=== PATIENT | female | born 1950 | race Caucasian/White ===

== ENCOUNTER 2017-07-22 05:30 | Day surgery (SDC) | payer MEDICARE ==
[~2017-07-22] VITALS: Ht 166.4 cm; Wt 97.0 kg
[~2017-07-22 05:30] MED LIST: ASPI-496 PO; ATOR10TA9 PO; CHOL10003 PO; DOXY100T PO; FESO4TAB PO; LISI1TAB5 PO; METF500T4 PO; METR45GE TP; MULT-658 PO; NATE60TA2 PO; PIOG15TA4 PO; [UNRECOGNIZED DRUG - OTHER] PO; probiotic PO; vitamin b12 IM
[2017-07-22] MEDS ORDERED: LACTATED RINGERS 1,000 ML IV SCH (06:14)
[2017-07-22 06:19] VITALS: BP 122/76
[2017-07-22] MEDS ORDERED: MIDAZOLAM 1 MG/ML, 2ML ONE (06:55)
[2017-07-22] MEDS ORDERED: FENTANYL PF 100 MCG/2ML ONE ×2 (06:56)
[2017-07-22] MEDS ORDERED: EPINEPHRINE 1 MG/ML, 1ML ONE (07:12)
[2017-07-22] MEDS ORDERED: BUPIVACAINE/PF 0.25% ONE (07:12)
[2017-07-22] MEDS ORDERED: SCOPOLAMINE PATCH, 1MG PATCH.TD72 TD ONE (07:19)
[2017-07-22] MEDS ORDERED: ONDANSETRON 2MG/ML, 2ML ONE (07:48)
[2017-07-22] MEDS ORDERED: CEFAZOLIN 1,000 MG ONE (07:48)
[2017-07-22] MEDS ORDERED: DEXAMETHASONE 4 MG/ML, 1ML ONE (07:48)
[2017-07-22] MEDS ORDERED: PROPOFOL 10 MG/ML, 20ML ONE (07:48)
[2017-07-22] MEDS ORDERED: ACETAMINOPHEN 325 MG TABLET PO PRN (08:00)
[2017-07-22] MEDS ORDERED: EPHEDRINE 50 MG/ML, 1ML IVPush PRN (08:00)
[2017-07-22] MEDS ORDERED: PROMETHAZINE 25 MG/ML, 1ML IV PRN (08:00)
[2017-07-22] MEDS ORDERED: OXYcodone 5 MG/5 ML ORAL.SOL UDC PO PRN (08:00)
[2017-07-22] MEDS ORDERED: MEPERIDINE/PF 25MG/0.5ML IVPush PRN (08:00)
[2017-07-22] MEDS ORDERED: ONDANSETRON 2MG/ML, 2ML IVPush PRN (08:00)
[2017-07-22] MEDS ORDERED: FENTANYL PF 100 MCG/2ML IV PRN (08:00)
[2017-07-22] MEDS ORDERED: HYDROcodone/APAP 7.5-325MG/15ML UDC PO PRN (08:00)
[2017-07-22] MEDS ORDERED: hydrALAzine 20 MG/ML, 1ML IV PRN (08:00)
[2017-07-22] MEDS ORDERED: METOPROLOL 1 MG/ML, 5ML IV PRN (08:00)
[2017-07-22] MEDS ORDERED: MIDAZOLAM 1 MG/ML, 2ML IV PRN (08:00)
[2017-07-22] MEDS ORDERED: LABETALOL 5MG/ML, 20ML IV PRN (08:00)
[2017-07-22] MEDS ORDERED: ALBUTEROL SULFATE 2.5 MG/3 ML NPPB PRN (08:00)
[2017-07-22] MEDS ORDERED: HYDROmorphone 1 MG/ML, 1ML IV PRN (08:00)
[2017-07-22] MEDS ORDERED: DIAZEPAM 5 MG/ML, 2ML IVPush PRN (08:00)
[2017-07-22] MEDS ORDERED: THROMBIN 5,000 UNIT VIAL TP ONE (08:21)
== END 2017-07-22 12:05 ==
LOC: OUT 05:30
PROVIDERS: ATTEND Urology
DX: N36.1 Urethral diverticulum (principal); I10 Essential (primary) hypertension; E11.9 Type 2 diabetes mellitus without complications; Z90.710 Acquired absence of both cervix and uterus; Z90.49 Acquired absence of other specified parts of digestive tract; Z98.890 Other specified postprocedural states; Z87.39 Personal history of other diseases of the musculoskeletal system and connective tissue
CPT/HCPCS: 53230; 82962; 88305; J0171; J0690; J1100; J2250; J2405; J2704; J3010; J3490; J7120